=== PATIENT | female | born 1945 | race Caucasian/White ===

== ENCOUNTER → 2016-07-18 | Outpatient (CLI) | payer OTHER ==
--- NOTE | ~2016-07-18 | MY11 ---
[facility] A Service of [facility] & [facility] / [facility] RADIOLOGY TEXT RESULTS PATIENT: ERIC CARLOS LOCATION: [facility] : 47 UNIT #: [id number] AGE: [address]: YOLANDA BABB APRN SEX: F ORDER DR: [id number] [facility] [address] [place], [place] [address] [id number] O MR#: [id number] Acc #: [id number] NAME: ERIC CARLOS : 1945 SEX: F STUDY DATE/TIME: 07/18/2016 12:48 UNIT: [facility] ROOM: STUDY DESCRIPTION: MY Mammogram Screening Dig Chu Attending Physician: Yolanda Babb M.D. Ordering Physician: Yolanda Babb M.D. Primary Care Physician: Yolanda Babb M.D. MEDICAL IMAGING REPORT This report is preliminary unless electronic signature is present EXAM Bilateral digital screening mammogram with CAD 07/18/2016 INDICATION 71-year-old female presenting for routine screening. No reported problems. No personal or family history of breast cancer. History of bilateral breast augmentation many years ago. No other surgeries. TECHNIQUE CC, MLO and implant displaced views of the breasts were obtained bilaterally and reviewed with an FDA-approved CAD device. COMPARISON 01/23/2013, 01/12/2012, 11/21/2011. FINDINGS Bilateral subglandular silicone type implants are present. There is redemonstration of probable extracapsular silicone medially in the left breast. Along the superior margin of the implant on the left MLO view, there is probable new lobulated extracapsular silicone. In the right breast, there is probable new extracapsular silicone in the lower inner quadrant although the presentation is somewhat diffuse with faint nodular densities on the CC projection. Suggest further evaluation with spot compression imaging of the upper hemisphere left breast and true lateral view on the left for further assessment of the probable new extracapsular silicone. On the right, compression imaging of the lower inner quadrant and a true lateral view is also recommended for further assessment of the probable new extracapsular silicone. The most recent comparison study we have is from 2012. The patient reports a more recent mammogram in 2016. If that could be obtained, it would be helpful for assessment of stability of the new findings on today's examination. There is otherwise no new dominant nodule, mass or suspicious cluster of STS. [facility] A Service of [facility] RADIOLOGY TEXT RESULTS PATIENT: ERIC CARLOS LOCATION: [facility] : 47 UNIT #: [id number] AGE: [address]: YOLANDA BABB [employer] TE[employer]ER SEX: F ORDER DR: microcalcifications in either breast. Benign dystrophic calcification in the right breast unchanged. No new adenopathy. IMPRESSION 1. Interval development of probable new extracapsular silicone in the upper hemisphere left breast. Additional views recommended as described above for further assessment. 2. Additional probable extracapsular silicone in the lower inner quadrant of the right breast. Additional views also recommended for further assessment. If the patient's more recent mammogram from 2016 could be obtained, it would be useful for assessment of stability of these findings. Patients over the age of 40 are entered into a reminder system with target due date for the next mammogram. A result letter will also be sent to the patient. BIRADS: 0 Incomplete: Need additional imaging evaluation and/or prior mammograms for comparison Dictated by... Zack Gandara M.D. THIS IS AN ELECTRONICALLY VERIFIED REPORT Zack Gandara M.D. at 07/21/2016 10:55 AM STEPHANY/justin TD: 07/21/2016 09:28 JOB #: [id number] MEDICAL IMAGING REPORT Page 1 of 1 COPY
== END | disposition home or self-care (01) ==
LOC: CWCC 12:26
DX: Z12.31 Encounter for screening mammogram for malignant neoplasm of breast (principal); Z98.82 Breast implant status; R92.8 Other abnormal and inconclusive findings on diagnostic imaging of breast
CPT/HCPCS: G0202